=== PATIENT | male | born 1945 | race Caucasian/White ===

== ENCOUNTER 2017-08-19 07:40 | Outpatient (CLI) | payer MEDICARE, OTHER ==
--- NOTE | 2017-08-19 14:42 | MRI Report ---
EXAM: LEFT SHOULDER MRI WITHOUT CONTRAST EXAM DATE: 08/19/2017 08:28 AM. CLINICAL HISTORY: 3 years of left shoulder and biceps pain. COMPARISON: Radiograph 04/11/2017. TECHNIQUE: Multiplanar, multisequence T1-weighted and fluid-sensitive sequences of the shoulder witho ut contrast. Other: None. FINDINGS: Acromioclavicular Region: The acromion is type II. Severe acromioclavicular osteoarthropathy is evide nced by bony hypertrophy, capsular hypertrophy, and periventricular marrow edema. The coracoacromial and coracoclavicular ligaments are intact. A moderate amount of fluid is in the subacromial/subdeltoi d bursa and associated with bursitis. Glenohumeral Region: No subluxation. No effusion or loose bodies. The articular cartilage is unremark able. The glenohumeral ligaments and joint capsule are unremarkable. Bone Marrow: No fracture, marrow edema or bone lesions. Labrum: A full-thickness tear is in the anterior-inferior labrum (series 501, image 10). Musculature/Rotator Cuff: The subscapularis tendon has a partial-thickness tear that is 1.5 cm in hei ght, 3.3 cm in width, and 75% in thickness. A complete tear of the supraspinatus tendon has retractio n of 3.1 cm. There is a small intrasubstance tear of the infraspinatus myotendinous junction. The ter es minor tendon is intact. Mild subscapularis fatty atrophy is present. No muscle edema. Biceps Tendon: The biceps tendon is medially dislocated out of the bicipital groove. Other: The subcutaneous tissues are unremarkable. IMPRESSION: 1. Severe acromioclavicular osteoarthropathy. 2. Moderate subacromial/subdeltoid bursitis. 3. Tear of the anteroinferior labrum. 4. Partial tear of the subscapularis tendon. 5. Complete tear of the supraspinatus tendon. 6. Small intrasubstance tear of the infraspinatus tendon. [facility] MUSCULOSKELETAL RADIOLOGY SECTION Referring Provider Line: [phone] SITE ID: [id number]
== END 2017-08-19 07:41 | disposition home or self-care (01) ==
LOC: DI 07:40
PROVIDERS: ATTEND Orthopaedic Surgery
DX: M75.22 Bicipital tendinitis, left shoulder (principal); M89.412 Other hypertrophic osteoarthropathy, left shoulder; M75.52 Bursitis of left shoulder; S43.492A Other sprain of left shoulder joint, initial encounter; S46.812A Strain of other muscles, fascia and tendons at shoulder and upper arm level, left arm, initial encounter

== ENCOUNTER 2018-05-05 15:16 | Outpatient (CLI) | payer MEDICARE, OTHER ==
--- NOTE | 2018-05-06 15:49 | XRAY Report ---
Reason: BACK Procedure Date: 05/05/2018 Accession Number: [id number] / [id number] Procedure: XRN - Cervical Spine Complete CPT Code: FULL RESULT: EXAM: CERVICAL SPINE RADIOGRAPHY EXAM DATE: 05/05/2018 03:39 PM. CLINICAL HISTORY: Left arm numbness at night last 2 months, no known injury COMPARISONS: None. TECHNIQUE: 5 views. FINDINGS: Alignment: There is mild anterior spondylolisthesis, 3.5 mm at C4-C5. No scoliosis. Bones: The cervical vertebral bodies and posterior elements are well-visualized from the skull base through C7-T1. No fractures or bone lesions. Disks: There is mild to moderate degenerative disk disease at the C3 through the C6, predominantly at C5-C6 with bilateral C5-C6 mild neuroforaminal stenosis, greater on the left side. Facets: Mild uncovertebral joint hypertrophic degenerative disease in the bilateral mid cervical spine also noted. Neural Foramina: The neural foramina have bony patency bilaterally. Soft Tissues: No prevertebral soft tissue swelling. The visualized lung apices are clear. IMPRESSION: 1. Mild to moderate degenerative disk disease at the C3 through the C6, predominantly at C5-C6 and bilateral C5-C6 mild neuroforaminal stenosis, greater on the left side. 2. mild anterior spondylolisthesis, 3.5 mm at C4-C5. [facility]
== END 2018-05-05 15:17 | disposition home or self-care (01) ==
LOC: DI.N 15:16
PROVIDERS: ATTEND Family Medicine
DX: M50.122 Cervical disc disorder at C5-C6 level with radiculopathy (principal); M43.12 Spondylolisthesis, cervical region; M48.02 Spinal stenosis, cervical region
CPT/HCPCS: 72050

== ENCOUNTER 2020-07-17 18:31 | Outpatient (CLI) | payer MEDICARE, OTHER ==
--- NOTE | 2020-07-18 08:26 | Ultrasound Report ---
PROCEDURE: Retroperitoneal INDICATIONS: HEMATURIA TECHNIQUE: Real-time scanning was performed of the retroperitoneal organs, with image documentation. COMPARISON: None. FINDINGS: Kidneys: Kidneys are normal in size. Right kidney measures 11.8 cm long; left kidney measures 12.3 cm long. Right renal cortical thickness is 2.0 cm; left renal cortical thickness is 2.1 cm. No rayne d masses, hydronephrosis, or nephrolithiasis. There are several scattered renal cysts, the largest o f which on the right is at the upper medial aspect of the cortex measuring up to 2.2 x 2.2 x 2.4 cm. On the left there are additional renal cortical cyst the largest located at the mid kidney level farooq uring 3.5 x 3.7 x 3.6 cm and a second similar cyst at the lower third renal cortex measuring 3.4 x 3. 6 x 3.3 cm. A third upper pole cyst is smaller measuring up to 1.5 cm in maximal dimension. No defini te urinary tract obstruction is seen. Miscellaneous: No free abdominal fluid. Prevoid bladder volume is 800 cc, postvoid residual is 172 cc. IMPRESSION: Bilateral renal cortical cysts are present, simple in character and the larger cysts are located on t he left measuring up to approximately 3.7 cm in maximal dimension. No renal calculus is found. A defi nite source of hematuria is not seen. Follow-up CT IVP may become necessary for more accurate assessm ent. Note is made of a relatively large bladder volume prevoid at 800 cc and a moderate postvoid residual of 172 cc. Reviewed by: Mahendra Brunson MD on 07/18/2020 8:24 AM [facility] Approved by: Mahendra Brunson MD on 07/18/2020 8:24 AM PST Station ID: [id number]
== END 2020-07-17 18:32 | disposition home or self-care (01) ==
LOC: DI 18:31
PROVIDERS: ATTEND Physician Assistant Medical
DX: R31.9 Hematuria, unspecified (principal); N28.1 Cyst of kidney, acquired

== ENCOUNTER 2020-12-29 08:14 | Outpatient (CLI) | payer MEDICARE, OTHER ==
--- NOTE | 2020-12-29 13:03 | XRAY Report ---
PROCEDURE: Wrist 3 View LT INDICATIONS: CARPAL TUNNEL SYNDROME, L WRIST TECHNIQUE: 3 views of the wrist were acquired. COMPARISON: None FINDINGS: Bones: No acute fractures or dislocations. No suspicious bony lesions. Polyarticular degenerative changes of the left wrist are visualized superior moderate-severe at the first carpometacarpal joint. Moderate degenerative changes also noted at the second carpometacarpal joint. Degenerative changes i nvolving the metacarpophalangeal joints of the first through fifth fingers. Polyarticular lucency not ed near the base of the fifth metacarpal. Minimal subchondral lucency near the base of the first meta carpal. Soft tissues: No suspicious soft tissue calcifications. IMPRESSION: 1. Left wrist without acute fracture or dislocation. 2. Polyarticular osteoarthrosis of the left wrist most pronounced at the first carpometacarpal joint. Scattered subcortical lucencies may represent osseous erosions. Reviewed by: Ron Kellogg MD on 12/29/2020 1:02 PM PDT Approved by: Ron Kellogg MD on 12/29/2020 1:02 PM PDT Station ID: [id number]
== END 2020-12-29 23:59 | disposition home or self-care (01) ==
LOC: DI.N 08:14
PROVIDERS: ATTEND Physician Assistant
DX: G56.02 Carpal tunnel syndrome, left upper limb (principal); M19.032 Primary osteoarthritis, left wrist

== ENCOUNTER 2021-02-19 15:15 | Emergency (ER) | payer MEDICARE, OTHER ==
[2021-02-19 15:48] VITALS: BP 146/98
--- NOTE | 2021-02-19 17:30 | ED Physician Documentation ---
History of Present Illness - Stated complaint Stated Complaint: MALE - Chief complaint Chief Complaint: General - History obtained from History obtained from: Patient - History of Present Illness Timing: How many weeks ago (1) Pain level max: 0 Pain level now: 0 - Additonal information Additional information: 75-year-old male states that he has a rash to his groin and swelling to his penis. He states he was seen at a walk-in clinic and told he did not have a urinary tract infection and sent home. States symptoms have worsened since that time. Nothing makes it better or worse. Rash is described as itchy. does not recall any new medications or detergents. Review of Systems Constitutional: denies: Fever, Chills GI: denies: Vomiting, Diarrhea Musculoskeletal: denies: Neck pain, Back pain Neurologic: denies: Headache PD PAST MEDICAL HISTORY - Past Medical History Cardiovascular: High cholesterol Respiratory: None Endocrine/Autoimmune: None GI: None : None HEENT: None Psych: None Musculoskeletal: Osteoarthritis Derm: None - Present Medications Home Medications: Ambulatory Orders Medication Instructions Recorded Confirmed Multivitamin [Multiple Vitamins] 1 cap PO DAILY 04/05/16 04/06/16 Simvastatin 40 mg PO DAILY 04/05/16 04/06/16 Finasteride [Proscar] 5 mg PO DAILY 02/19/21 02/19/21 Ibuprofen 200 mg PO 02/19/21 Methotrexate [Methotrexate Sodium] 2.5 mg PO DAILY 02/19/21 02/19/21 Nystatin Cream [Mycostatin Cream] 1 applic TOP BID PRN #1 gm 02/19/21 Tamsulosin [Flomax] 0.4 mg PO DAILY 02/19/21 02/19/21 Terbinafine [Lamisil] 250 mg PO DAILY #14 tablet 02/19/21 clindamycin HCL [Cleocin HCl] 300 mg PO Q6H #40 cap 02/19/21 - Allergies Allergies/Adverse Reactions: Allergies Allergy/AdvReac Type Severity Reaction Status Date / Time No Known Drug Allergies Allergy Verified 04/05/16 12:30 PD ED PE NORMAL - Vitals Vital signs reviewed: Yes - General General: Alert and oriented X 3, No acute distress - Abdomen Abdomen: Soft, Non tender, Non distended - Male Male : Other (There is an erythematous circular rash to the bilateral thighs as well as the suprapubic area. The penis itself is swollen, erythematous. No discharge or drainage. No crepitus. No testicular tenderness.) - Derm Derm: Warm and dry - Neuro Neuro: Alert and oriented X 3 Results - Vitals Vitals: Vital Signs - 24 hr 02/19/21 15:42 Temperature 36.6 C Heart Rate 107 H Respiratory 16 Rate Blood Pressure 146/98 H O2 Saturation 96 Oxygen O2 Source Room air PD MEDICAL DECISION MAKING - ED course Complexity details: considered differential, d/w patient ED course: Patient with a perineal rash, unclear if this is tinea versus Thais. Could be possibly secondarily infected. Will place on antibiotics and antifungals for home. Will him follow-up closely with his doctor to ensure resolution. No evidence of necrotizing fasciitis. Patient counseled regarding signs and symptoms for which I believe and urgent re-evaluation would be necessary. Patient with good understanding of and agreement to plan and is comfortable going home at this time This document was made in part using voice recognition software. While efforts are made to proofread this document, sound alike and grammatical errors may occur. Departure - Departure Disposition: 01 Home, Self Care Clinical Impression: Thais infection of genital region, Tinea cruris Condition: Good Instructions: ED Candidiasis Cutaneous, ED Jock Itch Infec Fungal Follow-Up: Kaiden Sifuentes DO [Primary Care Provider] - Within 1 week Prescriptions: clindamycin HCL [Cleocin HCl] 300 mg PO Q6H #40 cap Terbinafine [Lamisil] 250 mg PO DAILY #14 tablet Nystatin Cream [Mycostatin Cream] 1 applic TOP BID PRN #1 gm PRN Reason: Diaper Rash Comments: Your prescriptions were sent to [facility] in [place]. Please pick these up tonight and start them today. This should improve over the next few days. Return if you worsen. Follow-up with your doctor within 1 week for a recheck. Discharge Date/Time: 02/19/21 17:38
== END 2021-02-19 17:38 | disposition home or self-care (01) ==
LOC: ED 15:15
DX: B37.49 Other urogenital candidiasis (principal); B35.6 Tinea cruris
CPT/HCPCS: 99283

== ENCOUNTER 2021-02-22 08:21 | Emergency (ER) | payer MEDICARE, OTHER ==
[2021-02-22 08:34] VITALS: BP 127/76
[2021-02-22] MEDS ORDERED: cephALEXin 250 MG CAPSULE PO STA (08:53)
[2021-02-22] MEDS ORDERED: ACETAMINOPHEN 325 MG TABLET PO STA (08:53)
[2021-02-22] MEDS ORDERED: FLUCONAZOLE 100 MG TABLET PO STA (08:53)
--- NOTE | 2021-02-22 09:27 | ED Physician Documentation ---
PD HPI MALE - Stated complaint Stated Complaint: WOUND INFECTION - Chief complaint Chief Complaint: General - History obtained from History obtained from: Patient - History of Present Illness Timing - onset: How many weeks ago (1) Timing - duration: Weeks (1) Timing - details: Still present (has continued to spread area of redness.) Associated symptoms: Scrotal swelling (the scrotal skin and around the glans with redness, swelling and has significant weeping (dripping actually).). No: Dysuria, Unable to urinate, Testiclar pain Recently seen: Clinic (seen at walk in and only had STD testing without Rx, per patient, then seen in ER 3 days ago when worsening and Rx for yeast and bacterial.), Emergency Dept Review of Systems Constitutional: denies: Fever, Chills Nose: denies: Rhinorrhea / runny nose, Congestion Throat: denies: Sore throat Respiratory: denies: Cough GI: denies: Nausea, Vomiting, Constipation : denies: Dysuria Skin: reports: Rash PD PAST MEDICAL HISTORY - Past Medical History Past Medical History: Yes Cardiovascular: High cholesterol Respiratory: None Endocrine/Autoimmune: None GI: None : None HEENT: None Psych: None Musculoskeletal: Osteoarthritis Derm: None - Present Medications Home Medications: Ambulatory Orders Medication Instructions Recorded Confirmed Multivitamin [Multiple Vitamins] 1 cap PO DAILY 04/05/16 04/06/16 Simvastatin 40 mg PO DAILY 04/05/16 04/06/16 Finasteride [Proscar] 5 mg PO DAILY 02/19/21 02/19/21 Ibuprofen 200 mg PO 02/19/21 Methotrexate [Methotrexate Sodium] 2.5 mg PO DAILY 02/19/21 02/19/21 Nystatin Cream [Mycostatin Cream] 1 applic TOP BID PRN #1 gm 02/19/21 Tamsulosin [Flomax] 0.4 mg PO DAILY 02/19/21 02/19/21 Terbinafine [Lamisil] 250 mg PO DAILY #14 tablet 02/19/21 clindamycin HCL [Cleocin HCl] 300 mg PO Q6H #40 cap 02/19/21 Fluconazole [Diflucan] 150 mg PO Q2D 6 Days #3 tablet 02/22/21 cephALEXin [Keflex] 500 mg PO QID 5 Days #20 cap 02/22/21 - Allergies Allergies/Adverse Reactions: Allergies Allergy/AdvReac Type Severity Reaction Status Date / Time No Known Drug Allergies Allergy Verified 02/22/21 08:34 - Social History Does the pt smoke?: No Smoking Status: Never smoker PD ED PE NORMAL - Vitals Vital signs reviewed: Yes - General General: Alert and oriented X 3, No acute distress, Well developed/nourished - Abdomen Abdomen: Soft, Non tender - Male Male : Other (scrotum and penis with redness and swelling. Not red at meatus itself. There is weeping clear fluid diffusely, actually dripping as I inspect the area. No purulence. Redness in crural areas with red/speckled at edges on thigh and lower abd. that part seems c/w yeast. Mildly tender at the skin.) - Rectal Rectal: Deferred - Back Back: No CVA TTP - Derm Derm: Normal color, Warm and dry Results - Vitals Vitals: Oxygen O2 Source Room air PD MEDICAL DECISION MAKING - ED course Complexity details: reviewed old records (recent Rx of Lamisil and doxy for yeast/cellulitis. I would broaden with Keflex and add Diflucan short term. Is not that painful nor tender, so does not seem like NecFasc.), considered differential, d/w patient Departure - Departure Disposition: 01 Home, Self Care Clinical Impression: Thais infection of genital region, Wound infection Condition: Stable Record reviewed to determine appropriate education?: Yes Follow-Up: Kaiden Sifuentes DO [Primary Care Provider] - Prescriptions: Fluconazole [Diflucan] 150 mg PO Q2D 6 Days #3 tablet cephALEXin [Keflex] 500 mg PO QID 5 Days #20 cap Comments: [facility] Continue your current medications. Warm soaks or compresses to the area for cleaning of the skin right once or twice daily. Padding as needed for absorbing the weepage. I would add Diflucan antifungal and cephalexin antibiotic to your current regimen to broaden the coverage and see if that improves things better over the next 2 to 3 days. Follow-up with your primary care if not improving well in the next 2 to 3 days. Discharge Date/Time: 02/22/21 09:31
== END 2021-02-22 09:31 | disposition home or self-care (01) ==
LOC: ED 08:21
DX: N49.8 Inflammatory disorders of other specified male genital organs (principal); B37.9 Candidiasis, unspecified; N49.2 Inflammatory disorders of scrotum
CPT/HCPCS: 99282; 99284; A9270

== ENCOUNTER 2021-04-15 11:46 | Day surgery (SDC) | payer MEDICARE, OTHER ==
[2021-04-15] MEDS ORDERED: BUPIVACAINE 0.25% PF 30 ML VIAL ONE (11:47)
[2021-04-15] MEDS ORDERED: CELECOXIB 100 MG CAPSULE PO ONE (12:04)
[2021-04-15] MEDS ORDERED: ACETAMINOPHEN 500 MG TABLET PO ONE (12:04)
[2021-04-15] MEDS ORDERED: LACTATED RINGERS 1,000 ML IV ONE ×2 (12:14→13:23)
[2021-04-15] MEDS ORDERED: KETOROLAC 15 MG/ML VIAL IVP STA (12:17)
[2021-04-15] MEDS ORDERED: oxyCODONE 5 MG TABLET PO PRN (12:17)
[2021-04-15] MEDS ORDERED: PROPOFOL 500 MG/50 ML 500 MG/50 ML VIAL ONE (12:22)
[2021-04-15] MEDS ORDERED: LIDOCAINE-MPF 2% 5 ML VIAL ONE (12:26)
--- NOTE | 2021-04-15 12:32 | ANESTHESIA ---
Pre-Anesthesia VS, & Labs - Diagnosis L CTS - Procedure L CTR Vital Signs: Temp Pulse Resp BP Pulse Ox 36.5 C 92 16 148/87 H 96 04/15/21 12:11 04/15/21 12:11 04/15/21 12:11 04/15/21 12:11 04/15/21 12:11 Height: 5 ft 9 in Weight (kg): 75 kg Body Mass Index: 24.4 BMI Classification: Healthy weight - NPO Last Fluid Intake: coffee @0800 - Lab Results Lab results reviewed: Yes Home Medications and Allergies Home Medications: Ambulatory Orders Tunas-3/Dha/Epa/Fish Oil [Fish Oil 1,000 mg Softgel] 1 each PO DAILY 04/13/21 Active Medications Oxycodone HCl (Oxycodone 5 Mg Tablet) 5 mg PO Q4HR PRN PRN Reason: PAIN Multivitamin [Multiple Vitamins] 1 cap PO DAILY 04/05/16 Simvastatin 40 mg PO DAILY 04/05/16 Finasteride [Proscar] 5 mg PO DAILY 02/19/21 Ibuprofen 200 mg PO DAILY 02/19/21 Methotrexate [Methotrexate Sodium] 2.5 mg PO DAILY 02/19/21 Tamsulosin [Flomax] 0.4 mg PO DAILY 02/19/21 Tunas-3/Dha/Epa/Fish Oil [Fish Oil 1,000 mg Softgel] 1 each PO DAILY 04/13/21 Allergies/Adverse Reactions: Allergies Allergy/AdvReac Type Severity Reaction Status Date / Time No Known Drug Allergies Allergy Verified 02/22/21 08:34 Anes History & Medical History - Anesthetic History Anesthesia Complications: reports: No previous complications Family history of Anesthesia Complications: Denies Family history of Malignant Hyperthermia: Denies - Medical History Cardiovascular: reports: High cholesterol Pulmonary: reports: None Gastrointestinal: reports: Diverticulitis Urinary: reports: Benign prostate hypertrophy Musculoskeletal: reports: Osteoarthritis Endocrine/Autoimmune: reports: Systemic lupus erythematosus Skin: reports: None Smoking Status: Current every day smoker - Surgical History General: reports: Bowel surgery, Colonoscopy Orthopedic: reports: Carpal Tunnel surgery, Spine surgery Exam General: Alert, Oriented x3, Cooperative Dental: WNL Mouth Openin Fingerbreadth Neck Mobility: Normal Mallampati classification: II Thyromental Distance: 4-6 cm Respiratory: Lungs clear, Normal breath sounds, No respiratory distress Cardiovascular: Regular rate Neurological: Normal speech Mental/Cognitive Status: Alert/Oriented X3, Normal for patient Cognitive Status: Within normal limits Plan Anesthesia Type: Total IV Consent for Procedure(s) Verified and Reviewed: Yes Code Status: Attempt Resuscitation ASA classification: 2-Mild systemic disease Is this case an emergency?: No
[2021-04-15] MEDS ORDERED: LIDOCAINE 2%-EPI 1:100000 20 ML MDV ONE (12:51)
[2021-04-15] MEDS ORDERED: BUPIVACAINE 0.25% PF 30 ML VIAL SUBQ ONE ×2 (12:53)
[2021-04-15] MEDS ORDERED: LIDOCAINE 2%-EPI 1:100000 20 ML MDV SUBQ ONE ×2 (12:53)
--- NOTE | 2021-04-15 13:08 | OPERATIVE REPORT ---
Operative Report - General Procedure Date: 04/15/21 Planned Procedure: left carpal tunnel release Pre-Op Diagnosis: Left carpal tunnel syndrome Procedure Performed: Left carpal tunnel release CPT 56135 Post Op Diagnosis: Same as preoperative diagnosis - Procedure Note Primary Surgeon: Peter Atreaga MD Secondary Surgeon: Epi CLAUDIO Anesthesia Provider: Kathleen Link CRNA Anesthesia Technique: Local, MAC Estimated Blood Loss (mL): 2 Indications: This patient has a long history of numbness in the median nerve distribution both hands left worse than right. He has positive Tinel and Phalen and has tried nonoperative treatment without success. Findings: There was a nonspecific tenosynovitis within the carpal tunnel. The median nerve showed mild flattening beneath the transverse carpal ligament. Complications: None - Other Other Information/Narrative: The patient was brought to the operating room and placed in a supine position. The left arm was placed in a arm extension table. A pneumatic tourniquet had been applied to the proximal left arm over cast padding. The left upper extremity was prepped and draped in a sterile manner in the usual fashion. A timeout procedure was performed by the entire operating room team and all were in agreement. 4 cc of 2% lidocaine with epinephrine and 4cc 0.25% Marcainewas injected about the left carpal tunnel using a volar approach just proximal to the wrist flexor crease, ulnar to the palmaris longus. An additional amount was injected subcutaneously. A longitudinal incision was made in line with the third webspace. The incision began just distal to the wrist flexor crease and extended for 2.5 cm. The subcutaneous tissue and palmar aponeurosis were divided in line with the incision. The transverse carpal ligament was identified proximally and was incised. A blunt obturator was inserted beneath the transverse carpal ligament. The transverse carpal ligament was then divided from proximal to distal under direct visualization. The transverse carpal ligament was divided proximally with blunt tip scissors to achieve a full release of the carpal tunnel. The median nerve was inspected. The wound was irrigated. The skin was closed with interrupted 4-0 nylon vertical mattress suture. A bulky hand dressing was applied to the left hand and wrist with mild compression. A pneumatic tourniquet was not utilized during the procedure. Hemostasis was achieved with electrocautery. The patient tolerated procedure wellA physician starch treating assistant was utilized to retract, protect vital structures, wound closure and dressing
[2021-04-15 14:08] VITALS: BP 133/70
--- NOTE | 2021-04-15 14:17 | ANESTHESIA POST OP EVALUATION ---
Anesthesia Post Eval - Post Anesthesia Eval Vitals: Last Vital Signs Temp 37.0 C 04/15/21 14:05 Pulse 79 04/15/21 14:05 Resp 16 04/15/21 14:05 BP 133/70 H 04/15/21 14:05 Pulse Ox 97 04/15/21 14:05 CV Function Including HR & BP: Stable Pain Control: Satisfactory Nausea & Vomiting: Negative Mental Status: Baseline Respiratory Status: Airway Patent Hydration Status: Satisfactory Anesthesia Complications: None
== END 2021-04-15 11:47 | disposition home or self-care (01) ==
LOC: SDS 11:46
PROVIDERS: ATTEND Orthopaedic Surgery
PROC: 01N50ZZ Release Median Nerve, Open Approach (ICD-10-PCS; principal; 2021-04-15 14:30)
DX: G56.02 Carpal tunnel syndrome, left upper limb (principal); M06.9 Rheumatoid arthritis, unspecified; G89.29 Other chronic pain; M54.9 Dorsalgia, unspecified; E78.00 Pure hypercholesterolemia, unspecified; N40.0 Benign prostatic hyperplasia without lower urinary tract symptoms; F17.200 Nicotine dependence, unspecified, uncomplicated; Z79.1 Long term (current) use of non-steroidal anti-inflammatories (NSAID); Z79.899 Other long term (current) drug therapy
CPT/HCPCS: 64721; A9270; J7120